=== PATIENT | female | born 1970 | race Caucasian/White ===

== ENCOUNTER 2018-02-19 17:27 | Emergency (ER) | payer OTHER ==
[2018-02-19 17:59] VITALS: BP 136/68
--- NOTE | 2018-02-19 18:12 | UC ---
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 PATIENT COMPLAINS OF PAIN AND SWELLING IN HER WRIST WELL DECREASED RANGE OF MOTION AND PAIN IN HER LEFT ELBOW AND SHOULDER. - History of Current Complaint Chief Complaint: UCUpperExtremity Stated Complaint: WRIST INJURY Time Seen by Provider: 02/19/18 18:01 Hx Obtained From: Patient Hx Last Menstrual Period: 21 days Onset/Duration: Sudden Onset, Lasting Hours, Still Present Severity Initially: Moderate Severity Currently: Moderate Pain Intensity: 8 Pain Scale Used: 0-10 Numeric Character: Sharp Aggravating Factor(s): Movement Alleviating Factor(s): Nothing Associated Signs And Symptoms: Positive: Swelling, Bruising Related History: Dominant Hand Right - Allergies/Home Medications Allergies/Adverse Reactions: Allergies Allergy/AdvReac Type Severity Reaction Status Date / Time sulfamethoxazole Allergy Severe Rash Verified 02/19/18 17:46 [From Bactrim] trimethoprim [From Bactrim] Allergy Severe Rash Verified 02/19/18 17:46 PMH/Surg Hx/FS Hx/Imm Hx Previously Healthy: Yes - Surgical History Surgical History: Yes Surgery Procedure, Year, and Place: ear tubes as a child,labial surgery,c- section. Right total hip, DECEMBER 2014 - Family History Known Family History: Positive: None - Social History Alcohol Use: Weekly Alcohol Amount: 5 drinks per week Substance Use Type: None Smoking Status (MU): Former Smoker Type: Cigarettes Length of Time of Smoking/Using Tobacco: 20 YRS Have You Smoked in the Last Year: No When Did the Patient Quit Smoking/Using Tobacco: 2007 - Immunization History Most Recent Influenza Vaccination: NONE Most Recent Tetanus Shot: 20 YRS AGO Most Recent Pneumonia Vaccination: NONE Review of Systems Constitutional: Negative Skin: Bruising Respiratory: Negative Cardiovascular: Negative Gastrointestinal: Negative Musculoskeletal: Arthralgia, Decreased ROM, Edema All Other Systems Reviewed And Are Negative: Yes Physical Exam Triage Information Reviewed: Yes Appearance: Well-Appearing, Well-Nourished, Pain Distress - MILD Vital Signs: Initial Vital Signs Temp 98 F 02/19/18 17:46 Pulse 100 02/19/18 17:46 Resp 17 02/19/18 17:46 BP 136/68 02/19/18 17:46 Pulse Ox 98 02/19/18 17:46 Vital Signs Reviewed: Yes Eyes: Positive: Conjunctiva Clear ENT: Positive: Hearing grossly normal Respiratory: Positive: No respiratory distress, No accessory muscle use Cardiovascular: Positive: Pulses Normal Abdomen Description: Positive: Soft Musculoskeletal: Positive: ROM Limited @ - LEFT SHOULDER, ELBOW AND WRIST, Edema @ - LEFT WRIST, Other: - TTP DIFFUSELY OVER LEFT ARM FROM SHOULDER TO WRIST Neurological: Positive: Alert Psychological: Positive: Age Appropriate Behavior Skin: Positive: Other - BRUISING LEFT WRIST Diagnostics - Radiology LEFT WRIST XRAY Xray Interpretation: No Acute Changes Radiology Interpretation Completed By: Radiologist LEFT ELBOW XRAY Xray Interpretation: Positive (See Comments) - RADIAL HEAD FRACTURE WITH JOINT EFFUSION. Radiology Interpretation Completed By: Radiologist No standard instances Xray Interpretation: No Acute Changes Radiology Interpretation Completed By: Radiologist Upper Extremity Course/Dx - Differential Dx/Diagnosis Provider Diagnoses: 1. LEFT RADIAL HEAD FRACTURE. 2. LEFT WRIST SPRAIN - Physician Notification/Consults Discussed Patient Care With: Dayron Romero - AGREE WITH SPLINT, PAIN MGMT, OFFICE F/U Time Discussed With Above Provider: 19:00 Instructed by Provider To: Have Pt Call For Appt. Discharge - Sign-Out/Discharge Documenting (check all that apply): Discharge/Admit/Transfer - Discharge Plan Condition: Stable Disposition: HOME Prescriptions: HYDROcodone/ACETAMIN 5-325 MG* [[place] 5-325 TAB*] 1 - 2 tab PO Q6H PRN #20 tab MDD 6 PRN Reason: Pain Patient Education Materials: Elbow Fracture (ED) Forms: *Work Release Referrals: Herlinda Amaya MD [Primary Care Provider] - If Needed Dayron Romero MD [Medical Doctor] - 2 Days Additional Instructions: X-RAY SHOWS YOU HAVE AN ELBOW FRACTURE (RADIAL HEAD) AND A JOINT EFFUSION. KEEP THE SPLINT ON UNTIL SEEN BY ORTHOPEDICS. REST, ICE. IBUPROFEN NEEDED FOR DISCOMFORT. HYDROCODONE FOR BREAKTHROUGH. CALL ORTHOPEDICS FIRST THING TOMORROW MORNING FOR AN APPOINTMENT TO BE SEEN IN THE NEXT COUPLE OF DAYS. IF THE SPLINT STARTS TO FEEL TIGHT OKAY TO LOOSEN THE LAURIE BANDAGES. - Billing Disposition and Condition Condition: STABLE Disposition: Home
[2018-02-19] MEDS ORDERED: Ibuprofen TAB* 600 MG PO ONE (18:23)
--- NOTE | 2018-02-19 18:33 | RAD ---
INDICATION: Left wrist injury COMPARISON: None TECHNIQUE: AP, lateral, and oblique views were obtained. FINDINGS: The bony structures, joint spaces, and soft tissues are normal for age. IMPRESSION: NEGATIVE EXAMINATION.
--- NOTE | 2018-02-19 18:33 | RAD ---
INDICATION: Left elbow injury COMPARISON: None TECHNIQUE: AP, lateral, and oblique views were obtained. FINDINGS: There is a mildly depressed fracture the radial head. No other fractures are evident. The elbow articular is normally. There is a joint effusion. IMPRESSION: RADIAL HEAD FRACTURE WITH JOINT EFFUSION.
--- NOTE | 2018-02-19 18:34 | RAD ---
INDICATION: Fall. Left shoulder pain COMPARISON: None TECHNIQUE: Routine frontal and Y views were obtained. FINDINGS: The bony structures, joint spaces, and soft tissues are normal for age. IMPRESSION: NEGATIVE EXAMINATION.
[2018-02-19] MEDS ORDERED: HYDROcodone/ACETAMIN 5-325 MG* 1 TAB PO ONE (19:32)
== END 2018-02-19 19:30 | disposition home or self-care (01) ==
LOC: UCEAST 17:27
DX: S52.122A Displaced fracture of head of left radius, initial encounter for closed fracture (principal); S63.502A Unspecified sprain of left wrist, initial encounter; Z87.891 Personal history of nicotine dependence; W07.XXXA Fall from chair, initial encounter; Z88.2 Allergy status to sulfonamides; Y93.89 Activity, other specified; Y92.9 Unspecified place or not applicable
CPT/HCPCS: 99212; A9270-GY; G0463

== ENCOUNTER 2018-07-06 08:03 | Emergency (ER) | payer OTHER ==
[2018-07-06 08:25] VITALS: BP 136/73
--- NOTE | 2018-07-06 08:45 | UC ---
Throat Pain/Nasal Greg HPI - HPI Summary HPI Summary: 47-year-old woman comes to clinic today with a chief complaint of cough and chest congestion. This started 8 days ago. She's been coughing quite a bit and not been able sleep. She's been using NyQuil which does not help much with cough. Cough is worse at night better in the day when she gets up and moves around. Her sputum has been yellow and green recently. No fevers. Stop smoker. No chest pain or calf swelling she's not concerned about a heart attack or another cause for her cough other than an upper respiratory tract infection. - History of Current Complaint Chief Complaint: UCRespiratory Stated Complaint: URI Time Seen by Provider: 07/06/18 08:33 Hx Last Menstrual Period: 06/22/18 Pain Intensity: 2 - Allergies/Home Medications Allergies/Adverse Reactions: Allergies Allergy/AdvReac Type Severity Reaction Status Date / Time sulfamethoxazole Allergy Severe Rash Verified 07/06/18 08:25 [From Bactrim] trimethoprim [From Bactrim] Allergy Severe Rash Verified 07/06/18 08:25 PMH/Surg Hx/FS Hx/Imm Hx Psychological History: Depression - Surgical History Surgical History: Yes Surgery Procedure, Year, and Place: ear tubes as a child,labial surgery,c- section. Right total hip, DECEMBER 2014 - Family History Known Family History: Positive: None Negative: Diabetes - Social History Alcohol Use: Occasionally Alcohol Amount: 5 drinks per week Substance Use Type: None Smoking Status (MU): Former Smoker Type: Cigarettes Length of Time of Smoking/Using Tobacco: 20 YRS Have You Smoked in the Last Year: No When Did the Patient Quit Smoking/Using Tobacco: 2007 - Immunization History Most Recent Influenza Vaccination: NONE Most Recent Tetanus Shot: 20 YRS AGO Most Recent Pneumonia Vaccination: NONE Review of Systems Constitutional: Negative Skin: Negative Eyes: Negative ENT: Negative Respiratory: Cough Cardiovascular: Negative Gastrointestinal: Negative Motor: Negative Neurovascular: Negative Musculoskeletal: Negative Neurological: Negative Psychological: Negative Is Patient Immunocompromised?: No All Other Systems Reviewed And Are Negative: Yes Physical Exam Triage Information Reviewed: Yes Appearance: No Pain Distress, Well-Nourished, Ill-Appearing - MILD Vital Signs: Initial Vital Signs Temp 98.6 F 07/06/18 08:18 Pulse 72 07/06/18 08:18 Resp 18 07/06/18 08:18 BP 136/73 11/08/18 08:18 Pulse Ox 100 07/06/18 08:18 Vital Signs Reviewed: Yes Eye Exam: Normal Eyes: Positive: Conjunctiva Clear ENT: Positive: Pharynx normal, TMs normal Neck exam: Normal Neck: Positive: Supple Respiratory: Positive: Lungs clear, Normal breath sounds, No respiratory distress, Other: - DRY COUGH Cardiovascular: Positive: RRR Musculoskeletal Exam: Normal Musculoskeletal: Positive: Strength Intact, ROM Intact, No Edema, Other: - CALVES NON TENDER Neurological Exam: Normal Neurological: Positive: Alert, Muscle Tone Normal Psychological Exam: Normal Psychological: Positive: Age Appropriate Behavior Skin Exam: Normal Throat Pain/Nasal Course/Dx - Course Course Of Treatment: DISCUSSED VIRAL VERSES BACTERIAL INFECTION AND THE ROLE OF ANTIBIOTICS. THE PATIENT WISHES TO BE ON ANTIBIOTICS AT THIS TIME. - Differential Dx/Diagnosis Provider Diagnoses: BRONCHITIS Discharge - Sign-Out/Discharge Documenting (check all that apply): Patient Departure All imaging exams completed and their final reports reviewed: No Studies - Discharge Plan Condition: Stable Disposition: HOME Prescriptions: Azithromyxin CLIFF (NF) [Z-Cliff (Zithromax) 250 mg tabs #6] 2 tab PO .TODAY, THEN 1 DAILY #6 tab Benzonatate CAP* [Tessalon 100 MG CAP*] 100 mg PO TID PRN #20 cap PRN Reason: Cough Patient Education Materials: Acute Bronchitis (ED) Referrals: Herlinda Amaya MD [Primary Care Provider] - Additional Instructions: FOLLOW UP WITH YOUR DOCTOR IF NOT COMPLETELY IMPROVED. GET RECHECKED FOR ANY WORSENING OF YOUR CONDITION OR QUESTIONS OR CONCERNS. - Billing Disposition and Condition Condition: STABLE Disposition: Home
== END 2018-07-06 08:45 | disposition home or self-care (01) ==
LOC: UCEAST 08:03
DX: J40 Bronchitis, not specified as acute or chronic (principal); Z88.2 Allergy status to sulfonamides; Z87.891 Personal history of nicotine dependence
CPT/HCPCS: 99212; G0463

== ENCOUNTER 2018-12-11 07:44 | Day surgery (SDC) | payer OTHER ==
[~2018-12-11 07:44] MED LIST: Buffered Lidocaine 1% SYRIN* 1 ML/SYRINGE INTRADERM ONE; Famotidine IV* 10 MG/ML 2 ML (20 mg) IV ONE; Famotidine IV* 10 MG/ML 2 ML (20 mg) ONE; Lactated Ringers 1000 ML Bag* 1,000 ML IV SCH; ceFAZolin 2 GM in NS PREMIX(*) 2 GM/100 ML BAG IVPB ONE
[2018-12-11] MEDS ORDERED: Dexamethasone IV* 4 MG/ML 1 ML (4 MG) ONE ×2 (09:53→10:38)
[2018-12-11] MEDS ORDERED: EPINEPHRINE 1 MG/ML 1 ML VIAL ONE (09:54)
[2018-12-11] MEDS ORDERED: Lidocaine 1% INJ* 10 MG/ML 30 ML SDV ONE (09:54)
[2018-12-11] MEDS ORDERED: Propofol* 10 MG/ML 20 ML BTL ONE (10:15)
[2018-12-11] MEDS ORDERED: fentaNYL* 50 MCG/ML 2 ML VIAL (100 MCG VIAL) ONE (10:16)
[2018-12-11] MEDS ORDERED: Lidocaine 2% PF * 5 ML VIAL ONE (10:16)
[2018-12-11] MEDS ORDERED: Ketorolac INJ* 30 MG/ML 1 ML VIAL ONE (10:44)
[2018-12-11] MEDS ORDERED: Naloxone* 0.4 MG/ML 1 ML VIAL IV PRN (10:46)
[2018-12-11] MEDS ORDERED: fentaNYL* 50 MCG/ML 2 ML VIAL (100 MCG VIAL) IV PRN (10:46)
[2018-12-11] MEDS ORDERED: Acetaminophen IV 1GM/100ML * 1,000 MG/100 ML VIAL IVPB ONE (10:46)
[2018-12-11] MEDS ORDERED: Ondansetron INJ* 2 MG/ML VIAL IV PRN (10:46)
[2018-12-11] MEDS ORDERED: HYDROcodone/ACETAMIN 5-325 MG* 1 TAB ONE (11:27)
[2018-12-11 11:57] VITALS: BP 130/72
--- NOTE | 2018-12-11 14:34 | OP ---
DATE OF OPERATION: 12/11/18 - [facility] DATE OF : 66 ATTENDING PHYSICIAN: Ramon Mars MD ANESTHESIA: General. PRE-OP DIAGNOSIS: Left knee lateral meniscus tear. POST-OP DIAGNOSIS: Left knee lateral meniscus tear. OPERATIVE PROCEDURES: 1. Left knee arthroscopy. 2. Partial lateral meniscectomy. ESTIMATED BLOOD LOSS: Negligible. COMPLICATIONS: None. SUMMARY: Mrs. Thomas is a 48-year-old female who has been having troubles with left knee pain for over the past year. She has had several issues of pain about the knee and had been treated conservatively and while these had helped some, she still had specific pain and her primary care provider ordered an MRI. This showed an anterior horn lateral meniscus tear with a meniscal cyst. She did have very specific signs and symptoms related to the meniscal cyst, but I also wonder that some of her symptoms were not related to that meniscus tear. Other risks of surgery such as infection, scar formation, stiffness, DVT, pulmonary embolism, and continued pain were some of the risks discussed. She had wished to proceed. DESCRIPTION OF PROCEDURE: The patient was brought to the OR and an LMA was placed. Left knee was prepped and then draped. Portal sites were preinjected using 0.25% Marcaine with epinephrine mixed with 1% lidocaine and a standard lateral portal was made first using an #11 blade. Blunt trocar to sheath was easily introduced into the knee and a camera was introduced into the sheath. Knee was allowed to insufflate and pulling back, patellofemoral joint was nicely visualized. There was good cartilage in the patellofemoral joint, but she did have a lot of fat pushing in as well as a plica. Dropping down to the medial gutter, no loose bodies were seen and medial compartment was entered. Medial portal was made and probe was introduced where her medial meniscus was in good condition. Shaver was introduced as she had quite a bit of fat in the notch and this was used to aid in visualization. Her ACL was intact at probing and coming back upwards with a shaver, much of the plica was taken down at this time. Coming over, I could now see her meniscus tear and where she was frayed on the anterior and a bit on the posterior horn of the lateral meniscus. Remainder of meniscus was in excellent condition and again pictures were taken. Probe was used to confirm the tear and find the area of the meniscal cyst. Shaver was used to take down the cyst as well as gently debride the anterior meniscus tear. where it was in line with the fibers and with gentle debridement, nice partial meniscectomy was performed. Similarly, posterior horn was also addressed. Its final pictures were then taken. Second look revealed no additional pathology and all instrumentation was removed. Portal sites were closed using 4-0 nylon sutures. The knee was injected with a total of 60 cc of 0.25% Marcaine with epinephrine and 1% lidocaine mixed together with 8 mg dexamethasone. Sterile dressing and a Cryo/ Cuff were applied in the OR. The patient had the LMA removed in the OR and was stable on transfer to the recovery room. DISPOSITION/DISCHARGE SUMMARY: Mrs. Thomas is a 48-year-old female who just underwent a left knee arthroscopy. She tolerated the procedure well. There were no complications. She is currently rolling into the recovery room. Once she can tolerate p.o., has her pain well controlled and can void, she will be discharged home. Prescription for Henefer has been e-scribed in. She has instructions to keep her dressing clean, dry, and intact for the next 3 days, but after that may take her dressing down, cover her sutures with bandage, may shower, wash and get it wet, but should not soak it. I would like to see her in the office in approximately 10 days, remove her sutures, and make sure she is doing well. If there are any problems or if anything odd should occur, the instructions are to give the office a call. [id number]/[facility] #: [id number] BETH
== END 2018-12-11 12:28 | disposition home or self-care (01) ==
LOC: OR 07:44
PROVIDERS: ATTEND Orthopaedic Surgery
DX: S83.272A Complex tear of lateral meniscus, current injury, left knee, initial encounter (principal); Z87.891 Personal history of nicotine dependence; Z68.34 Body mass index [BMI] 34.0-34.9, adult; X58.XXXA Exposure to other specified factors, initial encounter; Y92.9 Unspecified place or not applicable
CPT/HCPCS: 81025; J0690; J1100; J1885; J2704; J3010

== ENCOUNTER 2019-02-03 07:31 | Emergency (ER) | payer OTHER ==
[2019-02-03 07:45] VITALS: BP 111/61
--- NOTE | 2019-02-03 07:52 | UC ---
Abdominal Pain Female HPI - HPI Summary HPI Summary: 48 yo female presents with generalized abdominal cramping and diarrhea. She tells me that on the night of 01/31 she ate fried oysters. On 02/01 around noontime she began to feel "unwell" with chills and had some nausea. By the night of 02/01 she had generalized abdominal pain and loose stools multiple times that persisted into morning of 02/02 (yesterday). She took an immodium yesterday morning and only had one BM yesterday, but also had one episode of vomiting. She only ate a granola bar yesterday, but is drinking water well. Today she has not taken any OTC medicine and has not had any BMs, but is concerned as the abdominal discomfort is still present. She did have a friend that ate the oysters with her, but is unsure if that friend is ill. She has had two c- sections, but no other abdominal/pelvic surgeries. Denies SOB, chest pain, blood in stool, dysuria, flank pain. - History of Current Complaint Chief Complaint: UCAbdominalPain Stated Complaint: ABD PAIN DIARRHEA Time Seen by Provider: 02/03/19 07:52 Hx Obtained From: Patient Hx Last Menstrual Period: january 23 Onset/Duration: Sudden Onset Severity Initially: Mild Severity Currently: Mild Pain Intensity: 3 Pain Scale Used: 0-10 Numeric Allergies/Adverse Reactions: Allergies Allergy/AdvReac Type Severity Reaction Status Date / Time sulfamethoxazole Allergy Severe Rash Verified 02/03/19 07:45 [From Bactrim] trimethoprim [From Bactrim] Allergy Severe Rash Verified 02/03/19 07:45 Home Medications: Home Medications Loperamide CAP* [Imodium CAP*] 2 mg PO Q4H PRN 02/03/19 [History Confirmed 02/03] PMH/Surg Hx/FS Hx/Imm Hx Psychological History: Anxiety, Depression - Surgical History Surgical History: Yes Surgery Procedure, Year, and Place: ear tubes as a child, labial surgery,c- section. Right total hip, DECEMBER 2014. left knee arthoscopy November 2018 - Family History Known Family History: Positive: None Negative: Diabetes - Social History Occupation: Employed Full-time Lives: With Family Alcohol Use: Occasionally Alcohol Amount: 5 drinks per week Substance Use Type: None Smoking Status (MU): Former Smoker Type: Cigarettes Length of Time of Smoking/Using Tobacco: 20 YRS Have You Smoked in the Last Year: No When Did the Patient Quit Smoking/Using Tobacco: 2007 - Immunization History Most Recent Influenza Vaccination: NONE Most Recent Tetanus Shot: 20 YRS AGO Most Recent Pneumonia Vaccination: NONE Review of Systems All Other Systems Reviewed And Are Negative: Yes Constitutional: Positive: Chills Skin: Positive: Negative Respiratory: Positive: Negative Cardiovascular: Positive: Negative Gastrointestinal: Positive: Abdominal Pain, Diarrhea Genitourinary: Positive: Negative Neurovascular: Positive: Negative Neurological: Positive: Negative Psychological: Positive: Negative Physical Exam - Summary Physical Exam Summary: GENERAL: NAD. WDWN. No pain distress. SKIN: No rashes, sores, lesions, or open wounds. Reflects adequate perfusion. No pallor. NECK: Supple. Nontender. No lymphadenopathy. CHEST: CTAB. No r/r/w. No accessory muscle use. Breathing comfortably and in no distress. CV: RRR. Without m/r/g. Pulses intact. Cap refill <2seconds ABDOMEN: Mild generalized TTP. Soft. No distention or guarding. No CVA tenderness. Bowel sounds present. Negative quezada sign. No McBurney point tenderness. NEURO: Alert. PSYCH: Age appropriate behavior. Triage Information Reviewed: Yes Vital Signs: Initial Vital Signs Temp 98.2 F 02/03/19 07:37 Pulse 89 02/03/19 07:37 Resp 16 02/03/19 07:37 BP 111/61 02/03/19 07:37 Pulse Ox 98 02/03/19 07:37 Laboratory Tests 02/03/19 09:02 POC Urine Color Yellow POC Urine Clarity Clear POC Urine pH 7.0 POC Ur Specif [place] 1.010 POC Urine Protein Negative POC Ur Glucose (UA) Negative POC Urine Ketones Negative POC Urine Blood 2+ A POC Urine Nitrite Negative POC Urine Bilirubin Negative POC Urine Urobilinogen 0.2 POC U Leukocyte Esteras Negative Vital Signs Reviewed: Yes Re-Evaluation - Re-Evaluation First Eval Re-Evaluation Time: 08:51 Change: Improved Comment: Stomach discomfort/burning improved s/p pepcid, PPI, and maalox. Abd Pain Female Course/Dx - Course Course Of Treatment: Suspect gastroenteritis or possible vibrio parahaemolyticus infection given her recent history of eating oysters with fitting symptomology and time frame s/p. She is currently drinking water and tolerating this well and denies feeling nauseous, but does have some "burning" in her stomach. For this she was given maalox, pepcid, and pantoprazole in the clinic and experienced some relief. We discussed IVF today, but she declines as she is drinking water well. I have a low suspicion at this time for any bacteremic condition, appendicitis, or diverticulitis. Advised to continue to drink water and advance diet as tolerated starting with a BRAT diet. Advised to stop taking the immodium. She will be provided with a stool kit to complete if she continues to have loose stools tomorrow and will return this for further testing. Advised that if her pain worsens, she notices blood in her stool, develops a fever, or is unable to tolerate po - to go to the ED. Pt voiced understanding and is agreeable with the plan. - Differential Dx/Diagnosis Provider Diagnosis: Food poisoning Discharge - Sign-Out/Discharge Documenting (check all that apply): Patient Departure All imaging exams completed and their final reports reviewed: No Studies - Discharge Plan Condition: Stable Disposition: HOME Patient Education Materials: Gastroenteritis (DC), Food Poisoning (ED) Referrals: Herlinda Amaya MD [Primary Care Provider] - Additional Instructions: If you develop a fever, shortness of breath, chest pain, blood in stool, inability to eat or drink, new or worsening symptoms - please call your PCP or go to the ED immediately. Please stop taking the immodium. May take an [id number] pantoprazole (protonix) once a day for your stomach burning. If you continue to have loose stools tomorrow - please complete the stool kit and return. Advance your diet slowly and as tolerated starting with bananas, rice, applesauce, and toast. - Billing Disposition and Condition Condition: STABLE Disposition: Home
[2019-02-03] MEDS ORDERED: Famotidine TAB* 20 MG PO ONE (08:15)
[2019-02-03] MEDS ORDERED: Al Hydrox/Mg Hydrox/Simet LIQ* 30 ML UDC PO ONE (08:15)
[2019-02-03] MEDS ORDERED: Pantoprazole TAB * 40 MG TAB PO ONE (08:15)
== END 2019-02-03 09:13 | disposition home or self-care (01) ==
LOC: UCEAST 07:31
DX: T62.91XA Toxic effect of unspecified noxious substance eaten as food, accidental (unintentional), initial encounter (principal); Y92.9 Unspecified place or not applicable; F41.9 Anxiety disorder, unspecified; F32.9 Major depressive disorder, single episode, unspecified; Z88.2 Allergy status to sulfonamides; Z87.891 Personal history of nicotine dependence
CPT/HCPCS: 81003; 99212; A9270-GY; G0463

== ENCOUNTER 2019-11-06 07:02 | Emergency (ER) | payer OTHER ==
--- OUTSIDE RECORDS SUMMARY | 2019-11-06 07:09 | XMS REPORT | Continuity of Care Document ---
:1970 External Reference #:[id number] Author Name Herlinda Amaya M.D. Address [address] [place] [address] Care Team Providers Name Role Phone Fer Mancera MD - Surgery Care Team Information Movie Shot Camera Operator [phone] Herlinda Amaya M.D. - Family Medicine Care Team Information Movie Shot Camera Operator [phone] Miles Kenyon And Zulma - Care Team Information Movie Shot Camera Operator Physical Therapist Problems Active Problems Provider Date Headache Juancho Epps M.D. Onset: 05/08/2012 Depressive disorder Juancho Epps M.D. Onset: 07/03/2012 Cobalamin deficiency Herlinda Amaya M.D. Onset: 10/23/2019 Impaired fasting glycaemia Herlinda Amaya M.D. Onset: 05/10/2019 Moderate recurrent major depression Herlinda Amaya M.D. Onset: 04/15/2014 Social History Type Date Description Comments Sex Unknown Tobacco Use Start: Unknown End: Former Cigarette Smoker 1/2 quit 4 years ago ; about Unknown Pack Daily 15 years of smoking 1/2-1ppd ETOH Use Occasionally consumes cutting back, does out alcohol patient rehab Tobacco Use Start: Unknown End: Patient is a former smoker quit 2009 Unknown Allergies, Adverse Reactions, Alerts Active Allergies Reaction Severity Comments Date Penicillin 04/08/2017 Inactive Allergies NKDA 06/18/2011 Medications Active Medications SIG Qnty Indications Ordering Provider Date Vitamin D take 1 capsule by 12caps Herlinda Amaya 10/23/2019 (Ergocalciferol) mouth once weekly M.D. for 12 weeks. 1.25mg (36879 Ut) Capsules Lorazepam take 1/2 - 1 pill 14tabs Herlinda Amaya 10/23/2019 0.5mg by mouth up to M.D. Tablets once daily as needed for anxiety Sertraline HCL take 1 and /2 135tabs F33.1 Herlinda Amaya, 04/15/2014 100mg tablets by mouth M.D. Tablets once daily as directed Gabapentin 1 tid prn Unknown 100mg Capsules Medications Administered in Office Medication SIG Qnty Indications Ordering Provider Date TB Intradermal Test Elvira Julien 05/24/1997 Injection Immunizations CPT Code Status Date Vaccine Lot # [id number] Given 05/24/1997 Td Immunization, For Use In Individuals 7 Years Or Older Vital Signs Date Vital Result Comment 10/23/2019 8:04am BP Systolic 116 mmHg BP Diastolic 80 mmHg Heart Rate 84 /min Body Temperature 97.5 F Height 68.25 inches 5'8.25" Weight 197.00 lb BMI (Body Mass Index) 29.7 kg/m2 05/10/2019 12:25pm BP Systolic 102 mmHg BP Diastolic 70 mmHg Heart Rate 88 /min Body Temperature 981.0 F Weight 189.00 lb Results Test Acquired Date Facility Test Result H/L Range Note Laboratory test 09/19/2019 [facility] SEE RESULT 1 finding BELOW [facility], Serum 05/11/2019 [facility] FSH 12.9 mIU/mL 2, [address] [place] [address] (607)- - Laboratory test 05/11/2019 [facility] Luteinizing 7.2 mIU/mL 4 finding [address] [facility] Hormone(LH), [place] [address] (607)- - Estradiol 94.7 pg/mL 5 Folate (Folic Acid), Serum 11.3 ng/mL >3.0 6 Comprehensive Metabolic 05/11/2019 [facility](fma) Sodium 138 mEq/L 134-149 Prof Potassium 4.8 mEq/L 3.6-5.5 Chloride 101 mEq/L 94-112 Carbon Dioxide 28 mEq/L 21-32 Glucose 91 mg/dL 70-105 BUN 8 mg/dL 6-26 Creatinine 0.7 mg/dL 0.6-1.4 BUN/Creat Ratio 11.4 CALC 8.0-36.0 Calcium 9.2 mg/dL 8.6-10.2 Total Protein 7.0 g/dL 6.4-8.3 Albumin 4.4 g/dL 3.8-5.5 Globulin 2.6 g/dL 2.0-4.8 A/G Ratio 1.7 CALC 0.6-2.3 Alk. Phosphatase 51 U/L 30-110 Alt (SGPT) 9 U/L 7-35 Ast (Sgot) 12 U/L 5-34 Total Bilirubin 0.5 mg/dL 0.2-1.3 GFR Non- >60 ml/min/1.73m^ >=60 GFR >60 ml/min/1.73m^ >=60 Laboratory test finding 05/11/2019 [facility]) TSH 4.41 mIU/L 0.50-6.00 Free T4 1.14 ng/dL 0.75-1.54 Vitamin B-12 281 pg/mL 230-1050 Lipid Profile 05/11/2019 [facility] Mavis([facility]) Cholesterol 202 mg/dL High 120-200 Triglycerides 103 mg/dL 30-200 HDL Cholesterol 50 mg/dL 30-85 LDL (Calculated) 131 CALC High 0-129 VLDL Cholesterol 21 mg/dL 0-50 HDL Risk Factor 4.0 CALC 0.0-4.4 CBC Electronic a 05/11/2019 Sebastian Gamble([facility]) WBC 5.9 x10^3/UL 4.0- 10.0 RBC 4.41 x10^6/UL 3.93-6.00 HGB 12.7 g/dL 12.0-17.0 HCT 41 % 35-50 MCV 92.1 fL 80.0-95.0 MCH 28.8 pg 25.6-32.2 MCHC 32.2 g/dL 32.2-36.0 RDW-CV 13.2 % 11.6-14.4 PLT 419 x10^3/UL High 163-400 7 MPV 10.4 fL 9.4-12.4 Jose# 3.85 x10^3/UL 1.56-6.13 Lymph# 1.46 x10^3/UL 1.18-3.74 [place]# 0.42 x10^3/UL 0.24-0.82 Eos # 0.1 x10^3/UL 0.0-0.5 Baso # 0.05 x10^3/UL 0.01-0.08 Jose% 65.4 % 34.0-70.0 Lymph % 24.8 % 20.0-52.0 [place]% 7.1 % 5.0-12.0 Eos% 1.7 % 0.7-7.0 Baso% 0.8 % 0.1-1.2 Laboratory test 05/11/2019 [facility] Hemoglobin A1c 5.0% % 4.1- 5.7 finding (607)- - (Fma) 1 SEE RESULT BELOW Name: MELANIE THOMAS : [address]: Perri Li MD Acct: [id number] Unit: [id number] AGE: 48 Location: [facility] Re09/19/19 SEX: F Status: REG REF SPEC: [id number] JUDITH: 09/19/19-[address]: Perri Li MD REQ: [id number] RECD: 09/19/19 STATUS: DANICA SHARIF DR: Herlinda Amaya MD _ ORDERED: TP IMAGE ANALYS, HPV/Thin Prep COMMENTS: [id number] FINAL DIAGNOSIS Negative for Intraepithelial lesion or Malignancy HPV RESULTS Date Time Test Result Flag (u) Normal Range 09/19/19 0959 HPV ADONIS Negative Negative The high-risk HPV types detected by the assay include: 16, 18, 31, 33, 35, 39, 45, 51, 52, 56, 58, 59, 66, and 68. SPECIMEN(S) RECEIVED A. Ectocervical/Endocervical CYTOLOGY ADEQUACY Specimen Adequacy: Satisfactory of evaluation Transformation zone component not identified CONTINUED ON NEXT PAGE DEPARTMENT OF PATHOLOGY, [facility] [place] [address] Jose Welch M.D. Director [facility] # [id number] CYTOLOGY PATIENT INFORMATION Patient Information: HPV: High risk HPV RNA testing regardless of pap results. Actual Specimen Date: 09/19/19 Last Menstrual Date: 07/18/19 Date of Last Specimen: 06/08/17 Signed by and Reported on: COLBY Rizvi(ASCP) [id number] This Pap test was evaluated with the assistance of the Exercise.com[employer] Test Imaging System. Due to cytologic findings at the blow mold operator microscope, comprehensive manual rescreening by a Financial Institution Branch Manager may be required. The Pap Smear is a screening test designed to aid in the detection of premalignant and malignant conditions of the uterine cervix. It is not a diagnostic procedure and should not be used as the sole means of detecting cervical cancer. Both false- positive and false- negative reports do occur. Depending on your risk status, a Pap smear should be obtained and evaluated every 1-3 years. END OF REPORT DEPARTMENT OF PATHOLOGY, [facility] [place], [place] [address] Jose Welch M.D. Director [facility] # [id number] 2 2 serum pour offs from red top tube 3 Adult Female: Follicular phase 3.5 - 12.5 Ovulation phase 4.7 - 21.5 Luteal phase 1.7 - 7.7 Postmenopausal 25.8 - 134.8 4 Adult Female: Follicular phase 2.4 - 12.6 Ovulation phase 14.0 - 95.6 Luteal phase 1.0 - 11.4 Postmenopausal 7.7 - 58.5 5 Adult Female: Follicular phase 12.5 - 166.0 Ovulation phase 85.8 - 498.0 Luteal phase 43.8 - 211.0 Postmenopausal <6.0 - 54.7 1st trimester 215.0 - >4300.0 Girls (1-10 years) 6.0 - 27.0 Pat ECLIA methodology 6 A serum folate concentration of less than 3.1 ng/mL is considered to represent clinical deficiency. 7 RESULTS VERIFIED BY REPEAT ANALYSIS Procedures Date Code Description Status 07/10/2019 [id number] Mammogram Completed 06/30/2018 [id number] Mammogram Completed 06/28/2017 [id number] Mammogram Completed 06/15/2016 [id number] Mammogram Completed 05/30/2015 [id number] Mammogram Completed Medical Devices Description No Information Available Encounters Type Date Location Provider Dx Diagnosis Office Visit 05/10/2019 Main Office Herlinda Amaya M.D. R73.01 Impaired fasting 12:10p glucose F33.1 Major depressive disorder, recurrent, moderate R55 Syncope and collapse R20.2 Paresthesia of skin F41.9 Anxiety disorder, unspecified M25.562 Pain in left knee Assessments Date Code Description Provider 10/23/2019 F33.1 Major depressive disorder, recurrent, moderate Herlinda Amaya M.D. 10/23/2019 D51.9 Vitamin B12 deficiency anemia, unspecified Herlinda Amaya M.D. 10/23/2019 E55.9 Vitamin D deficiency, unspecified Herlinda Amaya M.D. 10/23/2019 R42 Dizziness and giddiness Herlinda Amaya M.D. 10/23/2019 H61.21 Impacted cerumen, right ear Herlinda Amaya M.D. 05/11/2019 R73.01 Impaired fasting glucose Herlinda Amaya M.D. 05/11/2019 R20.2 Paresthesia of skin Herlinda Amaay M.D. 05/11/2019 R55 Syncope and collapse Herlinda Amaya M.D. 05/10/2019 R73.01 Impaired fasting glucose Herlinda Amaya M.D. 05/10/2019 F33.1 Major depressive disorder, recurrent, moderate Herlinda Amaya M.D. 05/10/2019 R55 Syncope and collapse Herlinda Amaya M.D. 05/10/2019 R20.2 Paresthesia of skin Herlinda Amaya M.D. 05/10/2019 F41.9 Anxiety disorder, unspecified Herlinda Amaya M.D. 05/10/2019 M25.562 Pain in left knee Herlinda Amaya M.D. Plan of Treatment 10/23/2019 - Herlinda Amaya M.D.F33.1 Major depressive disorder, recurrent, moderateComments:discussed menopausal effects on mood, cognition vs crpnpeodhkN34.9 Vitamin B12 deficiency anemia, unspecifiedComments:recommend 2000 units vitamin B12 (cyanocobalamin) daily on an empty stomachFollow up:3-4 fasting recheck labE55.9 Vitamin D deficiency, unspecifiedComments:2000 units of vitamin D3 [id number] Dizziness and giddinessComments:call if worsening, discussed sinus czuiwqV87.21 Impacted cerumen, right earComments:try home debrox /ear wax softening and lavage, call if dizziness doesn't improveAllNew Medication:Vitamin D (Ergocalciferol) 1.25 mg (89700 Ut) - take 1 capsule by mouth once weekly for 12 weeks.Lorazepam 0.5 mg - take 1/2 - 1 pill by mouth up to once daily as needed for anxietyComments:Medication Management Patient Understands medications she's taking? Yes No Are there Barriers to Adherence? Yes No Has the patient been asked about herbal supplements and therapies, and OTC meds? Yes No Functional Status Description No Information Available Mental Status Description No Information Available Referrals Description No Information Available
--- NOTE | 2019-11-06 07:10 | UC ---
UC General HPI - HPI Summary HPI Summary: 49 yo female cough, fever x 2 days felt wheezy last night. Better after shower this am. +household contact recent dx Influenza (typeA) no sob perse. No cp. No palpitations. No GI issues. No rash. No issues. Took ibuprofen last night, not today. - History of Current Complaint Stated Complaint: COUGH WHEEZING FEVER Time Seen by Provider: 11/06/19 07:06 Hx Obtained From: Patient Hx Last Menstrual Period: january 23 - Allergy/Home Medications Allergies/Adverse Reactions: Allergies Allergy/AdvReac Type Severity Reaction Status Date / Time sulfamethoxazole Allergy Severe Rash Verified 11/06/19 07:13 [From Bactrim] trimethoprim [From Bactrim] Allergy Severe Rash Verified 11/06/19 07:13 Home Medications: Home Medications Ibuprofen TAB* [Motrin TAB* 400 MG] 400 mg PO Q6H PRN 11/20/18 [History Confirmed 11/06/19] LORazepam [Lorazepam] 0.5 mg PO Q6H PRN 11/20/18 [History Confirmed 11/06/19] Sertraline* [Zoloft*] 150 mg PO QAM 11/20/18 [History Confirmed 11/06/19] Gabapentin CAP(*) [Neurontin 100 mg CAP(*)] 100 mg PO DAILY PRN 11/06/19 [ History Confirmed 11/06/19] Oseltamivir CAP* [Tamiflu CAP*] 75 mg PO BID #10 cap 11/06/19 [Rx] PMH/Surg Hx/FS Hx/Imm Hx Previously Healthy: Yes - Surgical History Surgical History: Yes Surgery Procedure, Year, and Place: ear tubes as a child, labial surgery,c- section. Right total hip, DECEMBER 2014. left knee arthoscopy November 2018 - Family History Known Family History: Positive: None Negative: Diabetes - Social History Alcohol Use: Occasionally Alcohol Amount: 5 drinks per week Substance Use Type: None Smoking Status (MU): Former Smoker Type: Cigarettes Length of Time of Smoking/Using Tobacco: 20 YRS Have You Smoked in the Last Year: No When Did the Patient Quit Smoking/Using Tobacco: 2007 - Immunization History Most Recent Influenza Vaccination: NONE Most Recent Tetanus Shot: 20 YRS AGO Most Recent Pneumonia Vaccination: NONE Review of Systems All Other Systems Reviewed And Are Negative: Yes Constitutional: Positive: Fever, Fatigue Skin: Positive: Rash Eyes: Positive: Negative ENT: Positive: Nasal Discharge Respiratory: Positive: Cough Cardiovascular: Positive: Negative Gastrointestinal: Positive: Negative Genitourinary: Positive: Negative Motor: Positive: Negative Neurovascular: Positive: Negative Musculoskeletal: Positive: Negative Neurological/Mental Status: Positive: Negative Psychological: Positive: Negative Is Patient Immunocompromised?: No Physical Exam Triage Information Reviewed: Yes Appearance: Well-Nourished - sitting up, looks tired, but nad Vital Signs Reviewed: Yes Eye Exam: Normal ENT: Positive: Pharyngeal erythema - mild post pharynx redness, no sores / exudates mm a little dry, TM dull Neck exam: Normal Neck: Positive: Supple Respiratory Exam: Other - + rhonchorus cough. BS equal Respiratory: Positive: No respiratory distress, No accessory muscle use Cardiovascular Exam: Other - HR 100's (prior to ibuprofen, temp 103.1F) Cardiovascular: Positive: Pulses Normal, Brisk Capillary Refill Abdominal Exam: Normal Abdomen Description: Positive: Nontender Musculoskeletal Exam: Normal - moves x 4 exts Musculoskeletal: Positive: Strength Intact Neurological Exam: Normal - grossly nonfocal Psychological Exam: Normal - nad Skin Exam: Normal - nondiaphoretic no visible or reported rash Course/Dx - Course Course Of Treatment: Influenza A + Reviewed coa / tx plan with pt. Questions as posed answered to the best of my ability. Encourage po. - Diagnoses Provider Diagnosis: Influenza Discharge ED - Sign-Out/Discharge Documenting (check all that apply): Patient Departure All imaging exams completed and their final reports reviewed: No Studies - Discharge Plan Condition: Stable Disposition: HOME Patient Education Materials: Influenza (ED), Fever in Adults (ED) Forms: *Work Release Referrals: Herlinda Amaya MD [Primary Care Provider] - - Billing Disposition and Condition Condition: STABLE Disposition: Home
[2019-11-06 07:13] VITALS: BP 149/68
[2019-11-06] MEDS ORDERED: Ibuprofen TAB* 600 MG PO ONE (07:16)
[2019-11-06 07:26] LABS: Influenza A Molecular POSITIVE (Negative)
== END 2019-11-06 07:45 | disposition home or self-care (01) ==
LOC: UCEAST 07:02
DX: J10.1 Influenza due to other identified influenza virus with other respiratory manifestations (principal); Z88.2 Allergy status to sulfonamides; Z87.891 Personal history of nicotine dependence
CPT/HCPCS: 99212; A9270-GY; G0463